=== PATIENT | female | born 2000 | race Caucasian/White ===

== ENCOUNTER 2020-02-17 11:14 | Emergency (ER) | payer MEDICAID ==
[~2020-02-17] VITALS: Ht 170.2 cm; Wt 89.0 kg
--- NOTE | 2020-02-17 11:37 | NUR ---
AMBULATORY TO ED ROOM 5 W/ STEADY GAIT, THEN TO [facility].
--- NOTE | 2020-02-17 11:50 | NUR ---
ABD PAIN X 3 DAYS, VOMITING X 2 DAY, DIARRHEA STARTED LAST NOC. IBUPROFEN YESTERDAY, PEPTO-BISMOL YESTERDAY. LAST FOOD INTAKE: 2 DAYS AGO. SIPPING ON WATER CURRENTLY. LAST BM: TODAY - [place]. RUQ & LUQ PAIN WHEN WALKING, RLQ & LLQ PAIN WHEN LAYING DOWN. PT COLLEGE STUDENT AT [employer]. ROOMMATE RETURNED YESTERDAY AFTER 1 WEEK OF BEING GONE.
[2020-02-17] MEDS ORDERED: SODIUM CHLORIDE 0.9% 1,000ML IVBOLUS ONE (13:00)
[2020-02-17] MEDS ORDERED: DICYCLOMINE 10 MG/ML, 2ML IM ONE (13:00)
[2020-02-17] MEDS ORDERED: ONDANSETRON 2MG/ML, 2ML IVPush ONE (13:00)
[2020-02-17 13:07] LABS: BASOPHILS % (AUTO) 0 % (0-1); EOSINOPHILS % (AUTO) 0 % (1-7); LYMPHOCYTES % (AUTO) 9 % (22-44); MEAN CORPUSCULAR HEMOGLOBIN 27.3 pg (27.0-34.8); MEAN CORPUSCULAR HGB CONC 33.1 g/dL (32.4-35.8); MEAN PLATELET VOLUME 7.9 fL (7.4-10.4); MONOCYTES % (AUTO) 9 % (2-9); NEUTROPHILS % (AUTO) 82 % (42-75); PLATELET COUNT 291 x10^3/uL (130-400); RED BLOOD COUNT 4.76 x10^6/uL (3.82-5.3); RED CELL DISTRIBUTION WIDTH 13.2 % (9.6-15.2)
[2020-02-17 13:16] LABS: ALANINE AMINOTRANSFERASE 26 U/L (12-78); ALBUMIN 3.3 g/dL (3.4-5.0); ANION GAP 7 mmol/L (5-15); CALCIUM 8.7 mg/dL (8.5-10.1); CHLORIDE 107 mmol/L (98-107); CREATININE 0.81 mg/dL (0.55-1.02)
[2020-02-17 13:20] LABS: ALKALINE PHOSPHATASE 91 U/L (45-117); BILIRUBIN,TOTAL 0.3 mg/dL (0.2-1.0); TOTAL PROTEIN 7.1 g/dL (6.4-8.2)
[2020-02-17 13:30] LABS: MD SCAN
--- NOTE | 2020-02-17 13:53 | NUR ---
DR BENTLEY AT BS. PT C/O INCREASING ABD PAIN.
--- NOTE | 2020-02-17 14:17 | NUR ---
IV ATTEMPTED X1; ASSISTED REQUESTED. MARQUITA RN TO BS FOR IV ATTEMPT.
[2020-02-17] MEDS ORDERED: MORPHINE SULFATE 4 MG/ML, 1ML IVPush PRN (14:30)
[2020-02-17 14:36] LABS: MICROSCOPIC NOT IND
[2020-02-17] MEDS ORDERED: ONDANSETRON 2MG/ML, 2ML ONE (14:54)
[2020-02-17] MEDS ORDERED: MORPHINE SULFATE 4 MG/ML, 1ML ONE (14:54)
[2020-02-17] MEDS ORDERED: DICYCLOMINE 10 MG/ML, 2ML ONE (14:55)
--- NOTE | 2020-02-17 14:58 | NUR ---
TO U/S PER TANA
[2020-02-17 15:29] VITALS: BP 112/53
--- NOTE | 2020-02-17 15:29 | NUR ---
ZOFRAN & MORPHINE GIVEN PER EMAR
== END 2020-02-17 16:39 | disposition home or self-care (01) ==
LOC: ED 13:18
DX: O21.8 Other vomiting complicating pregnancy (principal); R19.7 Diarrhea, unspecified; E86.0 Dehydration; R10.2 Pelvic and perineal pain; Z3A.08 8 weeks gestation of pregnancy
CPT/HCPCS: 36415; 76801; 80053; 81003; 83690; 84702; 84703; 85025; 96361; 96372; 96374; 96375; 99285; J0500; J2270; J2405; J7030